=== PATIENT | male | born 1970 | race Caucasian/White ===

== ENCOUNTER 2022-04-12 06:17 | Emergency (ER) | payer OTHER ==
[~2022-04-12] VITALS: Ht 170.2 cm; Wt 85.3 kg
[2022-04-12] MEDS ORDERED: ZOLOFT20 MG/1 ML PO (06:21)
[2022-04-12] MEDS ORDERED: MEDROLPACK PO (08:56)
== END 2022-04-12 09:09 | disposition home or self-care (01) ==
LOC: ER 06:17
DX: K13.79 Other lesions of oral mucosa (principal)

== ENCOUNTER 2022-09-29 03:08 | Emergency (ER) | payer OTHER ==
[~2022-09-29] VITALS: Ht 170.2 cm; Wt 86.2 kg
[~2022-09-29 03:08] MED LIST: MEDROLPACK PO; ZOLOFT20 MG/1 ML PO
[2022-09-29] MEDS ORDERED: CLONAZEPAM0.25 MG (03:16)
[2022-09-29] MEDS ORDERED: KETO10TA2 PO (06:47)
[2022-09-29] MEDS ORDERED: ORPHENADRINE C100 MG PO (06:47)
== END 2022-09-29 06:53 | disposition home or self-care (01) ==
LOC: ER 03:08
DX: M54.50 Low back pain, unspecified (principal); I10 Essential (primary) hypertension; Z91.013 Allergy to seafood

== ENCOUNTER 2022-11-01 21:16 | Emergency (ER) | payer OTHER ==
[~2022-11-01] VITALS: Ht 170.2 cm; Wt 82.6 kg
[~2022-11-01 21:16] MED LIST changes: +CLONAZEPAM0.25 MG; +KETO10TA2 PO; +ORPHENADRINE C100 MG PO
== END 2022-11-01 22:07 | disposition home or self-care (01) ==
LOC: ER 21:16
DX: S60.511A Abrasion of right hand, initial encounter (principal); W25.XXXA Contact with sharp glass, initial encounter; Y93.89 Activity, other specified; Y92.89 Other specified places as the place of occurrence of the external cause; Y99.8 Other external cause status; R53.81 Other malaise; Z91.013 Allergy to seafood

== ENCOUNTER 2023-07-05 16:29 | Emergency (ER) | payer OTHER ==
[~2023-07-05] VITALS: Ht 170.2 cm; Wt 81.6 kg
[2023-07-05] MEDS ORDERED: DIPHENHYDRAMINE HCL 50 MG/ML VIAL 1ML IV ONE (16:45)
[2023-07-05] MEDS ORDERED: EPINEPHRINE HCL/PF 1 MG/ML AMPUL SUBCUTANEO ONE (16:45)
[2023-07-05] MEDS ORDERED: METHYLPREDNISOLONE SOD SUCC 125 MG VIAL IV ONE (16:45)
[2023-07-05 16:58] LABS: HEMATOCRIT 46.3 % (39.0-48.0); HEMOGLOBIN 15.9 g/dL (13-16.00); MEAN CELL VOLUME 88.3 fL (80.0-100.00); MEAN CORPUSCULAR HEMOGLOBIN 30.4 pg (27.00-32.0); MEAN CORPUSCULAR HGB CONC 34.4 g/dl (32.0-36.0); PLATELET COUNT 356 K/uL (150-450); RED BLOOD COUNT 5.25 M/uL (4.00-6.00); RED CELL DISTRIBUTION WIDTH 13.6 % (11.5-14.5)
== END 2023-07-05 18:01 | disposition home or self-care (01) ==
LOC: ER 16:29
PROVIDERS: General Practice
DX: T78.40XA Allergy, unspecified, initial encounter (principal); Z91.013 Allergy to seafood